=== PATIENT | female | born 1955 | race Caucasian/White ===

== ENCOUNTER 2016-07-28 05:55 | Emergency (ER) | payer OTHER ==
[2016-07-28 07:53] VITALS: BP 142/85
== END 2016-07-28 07:53 | disposition home or self-care (01) ==
LOC: ED 05:55
DX: G89.29 Other chronic pain (principal); M54.5 Low back pain; I10 Essential (primary) hypertension; F17.210 Nicotine dependence, cigarettes, uncomplicated; Z98.890 Other specified postprocedural states
CPT/HCPCS: J1885; J2175; Q0162